=== PATIENT | female | born 1990 | race American Indian/Alaskan Native ===

== ENCOUNTER 2022-01-16 08:03 | Emergency (ER) | payer OTHER ==
[2022-01-16] MEDS ORDERED: SODIUM CHLORIDE 0.9% 1,000 ML IV STA (08:23)
[2022-01-16] MEDS ORDERED: KETOROLAC 15 MG/ML VIAL IVP STA (08:23)
[2022-01-16] MEDS ORDERED: ONDANSETRON 4 MG/2 ML VIAL IVP STA (08:23)
[2022-01-16] MEDS ORDERED: ACETAMINOPHEN 325 MG TABLET PO STA (09:09)
--- NOTE | 2022-01-16 09:16 | ED Physician Documentation ---
PD HPI HEADACHE - Stated complaint Stated Complaint: VOMIT/HEADACHE - Chief complaint Chief Complaint: Neuro - History obtained from History obtained from: Patient - History of Present Illness Timing - onset: Last night Timing - onset during: Sleep, Rest Timing - duration: Hours Timing - details: Gradual onset, Still present Worst headache ever?: No: Worst headache ever? (siilar to migraines when younger, but hadn't had one for several years.) Quality: Throbbing, Aching Associated symptoms: Nausea, Vision changes (mild blurred vision right). No: Fever, Stiff neck, Weakness, Numbness Worsened by: Light, Noise Contributing factors: No: Recent illness, Trauma Similar symptoms before: Diagnosis (migraines when younger) Recently seen: Not recently seen Review of Systems Constitutional: denies: Fever, Chills Nose: denies: Rhinorrhea / runny nose, Congestion Throat: denies: Sore throat Respiratory: denies: Cough Neurologic: denies: Focal weakness, Numbness PD PAST MEDICAL HISTORY - Past Medical History Cardiovascular: None Respiratory: None Neuro: Migraines Endocrine/Autoimmune: None - Present Medications Home Medications: Ambulatory Orders Medication Instructions Recorded Confirmed HYDROcod/ACETAM 5/325 [[place] 5/325] 1 ea PO Q6H PRN #12 tablet 01/16/22 Ondansetron Odt [Zofran] 4 mg TL Q6H PRN #12 tablet 01/16/22 Rizatriptan Benzoate [Rizatriptan] 5 mg PO Q6H PRN #6 tab 01/16/22 - Allergies Allergies/Adverse Reactions: Allergies Allergy/AdvReac Type Severity Reaction Status Date / Time No Known Drug Allergies Allergy Verified 01/16/22 08:31 PD ED PE NORMAL - Vitals Vital signs reviewed: Yes - General General: Alert and oriented X 3, No acute distress, Well developed/nourished - HEENT HEENT: PERRL, EOMI - Neck Neck: Supple, no meningeal sign, No adenopathy - Cardiac Cardiac: RRR, No murmur - Respiratory Respiratory: Clear bilaterally - Derm Derm: Normal color, Warm and dry - Extremities Extremities: Normal ROM s pain - Neuro Neuro: Alert and oriented X 3, 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 CLOUDY Urine pH 6.0 Ur Specific [place] >=1.030 H Urine Protein NEGATIVE Urine Glucose (UA) NEGATIVE Urine Ketones NEGATIVE Urine Occult Blood SMALL H Urine Nitrite NEGATIVE Urine Bilirubin NEGATIVE Urine Urobilinogen 0.2 (NORMAL) Ur Leukocyte Esterase TRACE H Urine RBC 0-5 Urine WBC >25 H Ur Squamous Epith Cells MANY Squamous H Urine Bacteria Few Urine Mucus Marked Strands Ur Microscopic Review INDICATED Urine Culture Comments NOT INDICATED PD MEDICAL DECISION MAKING - ED course Complexity details: re-evaluated patient (improved with migraine type meds. ), considered differential, d/w patient Departure - Departure Disposition: 01 Home, Self Care Clinical Impression: Headache, migraine Qualifiers: Migraine type: without aura Status migrainosus presence: with status migrainosus Intractability: not intractable Qualified Code(s): G43.001 - Migraine without aura, not intractable, with status migrainosus Condition: Stable Record reviewed to determine appropriate education?: Yes Instructions: ED Headache Migraine Follow-Up: [facility] [Provider Group] Prescriptions: HYDROcod/ACETAM 5/325 [[place] 5/325] 1 ea PO Q6H PRN #12 tablet PRN Reason: Pain Rizatriptan Benzoate [Rizatriptan] 5 mg PO Q6H PRN #6 tab PRN Reason: Migraine Ondansetron Odt [Zofran] 4 mg TL Q6H PRN #12 tablet PRN Reason: Nausea / Vomiting Comments: Small frequent fluids and rest today. Off work today. Tylenol every 4-6 hours if needed for headache/pains. Use hydrocodone/acetaminophen if needed for worse pain. Ondansetron every 6 hours if needed for nausea. Recheck or follow-up if not improved through the day today and better by tomorrow. Return if worse. For subsequent migraine type headaches, you could try combination of the ondansetron/Zofran for nausea along with a migraine and medicine called rizatriptan and could also have some ibuprofen with that. See if that combination would stop the headache earlier (within 1/2-hour to an hour). It be good to see if this would be useful for her subsequent headaches. If you have just a mild headache in the future then Tylenol or ibuprofen for just mild headache but the above combination for migraine type like this. I sent your prescriptions to [facility] pharmacy in [place]. I am prescribing a short course of narcotic pain medication for you. These are potentially dangerous and addictive medications that should be used carefully. These medications may constipate you. Take an lomj-pfk-ytwcoeh stool softener such as docusate twice daily with plenty of water while taking these medications. If you go 24 hours without a bowel movement, take vyyr-taa-jcdkzwm MiraLAX, per package instructions. Do not drink or drive while taking these medications. If you received narcotic or sedating medications while in the emergency department do not drive for 24 hours. Store this medication in a safe, secure place and out of reach of children. It is a violation of federal law to give or sell this medication to another person or to use in a manner other than prescribed. The ED will not refill narcotic prescriptions, including prescriptions lost or stolen. You can dispose of unwanted medications at the [facility]'s office or at several pharmacies such as [facility]. Forms: Activity restrictions Discharge Date/Time: 01/16/22 11:02
[2022-01-16 09:58] LABS: BILIRUBIN,URINE NEGATIVE (NEGATIVE); CLARITY,URINE SL. CLOUDY (CLEAR); GLUCOSE, URINE (UA) NEGATIVE (NEGATIVE); KETONES,URINE (UA) NEGATIVE (NEGATIVE); LEUKOCYTE ESTERASE, URINE TRACE (NEGATIVE); NITRITE,URINE NEGATIVE (NEGATIVE); OCCULT BLOOD,URINE SMALL (NEGATIVE); PROTEIN,URINE NEGATIVE (NEGATIVE); UROBILINOGEN,URINE 0.2 (NORMAL) E.U./dL (NORMAL)
[2022-01-16 10:08] LABS: BACTERIA,URINE Few /HPF (None Seen); MUCUS,URINE Marked Strands; RBC,URINE 0-5 /HPF (0-5); SQUAMOUS EPITHELIAL CELL,UR MANY Squamous (<= Few); WBC,URINE >25 /HPF (0-5)
[2022-01-16 11:02] VITALS: BP 99/65
== END 2022-01-16 11:02 | disposition home or self-care (01) ==
LOC: ED 08:03
DX: G43.001 Migraine without aura, not intractable, with status migrainosus (principal)
CPT/HCPCS: 81001; 96374; 96375; 99283; 99284; A9270; 81003; 87086

== ENCOUNTER 2022-04-04 19:54 | Emergency (ER) | payer OTHER ==
[2022-04-04 20:50] LABS: RAPID STREP SCREEN Negative (Negative)
--- NOTE | 2022-04-04 21:05 | ED Physician Documentation ---
History of Present Illness - Stated complaint Stated Complaint: FEVER,N/V/D,SORE THROAT - Chief complaint Chief Complaint: Heent - History obtained from History obtained from: Patient - Additonal information Additional information: 32-year-old female who presents with about 6 days of fever, sore throat, body aches, headache. She feels a sore throat is worsening and radiating into her ears. She has been taking some occasional ibuprofen or Tylenol but noted no improvement. She did see her PCP today who gave her a prescription for amoxicillin for sinusitis. She had COVID and flu testing done but did not receive the results yet.She has not had any chest pain, respiratory distress, abdominal pain, nausea vomiting or diarrhea. Review of Systems Ten Systems: 10 systems reviewed and negative (Except as per HPI) PD PAST MEDICAL HISTORY - Past Medical History Past Medical History: Yes Cardiovascular: None Respiratory: None Neuro: Migraines Endocrine/Autoimmune: None - Present Medications Home Medications: Ambulatory Orders Medication Instructions Recorded Confirmed Amoxicillin 500 mg PO TID 04/04/22 04/04/22 - Allergies Allergies/Adverse Reactions: Allergies Allergy/AdvReac Type Severity Reaction Status Date / Time No Known Drug Allergies Allergy Verified 04/04/22 20:10 PD ED PE NORMAL - Vitals Vital signs reviewed: Yes - General General: Alert and oriented X 3, No acute distress, Well developed/nourished - HEENT HEENT: Atraumatic, Ears normal, Moist mucous membranes, Pharynx benign, Dentition benign - Neck Neck: Supple, no meningeal sign, No JVD, Other (Posterior auricular adenopathy, minor) - Cardiac Cardiac: RRR, No murmur, No gallop, No rub - Respiratory Respiratory: No respiratory distress, Clear bilaterally - Abdomen Abdomen: Normal bowel sounds, Soft, Non tender, Non distended - Derm Derm: Normal color, Warm and dry, No rash - Neuro Neuro: Alert and oriented X 3 Eye Opening: Spontaneous Motor: Obeys Commands Verbal: Oriented GCS Score: 15 - Psych Psych: Normal mood, Normal affect Results - Vitals Vitals: Vital Signs - 24 hr 04/04/22 04/04/22 20:04 21:12 Temperature 38.2 C H 37.9 C Heart Rate 102 H 91 Respiratory 16 16 Rate Blood Pressure 125/70 122/68 O2 Saturation 98 99 Oxygen O2 Source Room air - Labs Labs: Laboratory Tests 04/04/22 20:30 Group A Strep Rapid Negative PD MEDICAL DECISION MAKING - ED course Complexity details: considered differential, d/w patient ED course: 32-year-old female presents with viral symptoms for the course of the last 6 days. She has sore throat, headache, body aches and fever. We obtained a strep test which was negative and clinically patient does not appear to have strep throat. Her respiratory viral panel is pending however suspect this might be the flu. She was already given amoxicillin by her primary care provider for a sinusitis and she can continue that but otherwise treatment is largely supportive, recommended plenty of rest, ibuprofen, Tylenol, or fluids. She was given the next 3 days off work. Return precautions reviewed. Departure - Departure Disposition: 01 Home, Self Care Clinical Impression: Viral syndrome Condition: Good Instructions: ED Viral Syndrome Comments: You presented with fever, body aches, sore throat, headache. Your symptoms are likely due to a virus, possibly influenza. Your strep test is negative. We should have your viral panel back tonight or tomorrow and you may call for results or check it out on the patient portal however treatment Is typically supportive including ibuprofen, Tylenol, lots of rest and oral fluids. Your primary Care doctor did give you antibiotics for possible sinusitis and I think it is reasonable to take these since you feel your symptoms are worsening over the course the last 6 days. Flu symptoms typically resolve in 1 to 2 weeks and anticipate you should start to see improvement over the next several days. Forms: Activity restrictions Discharge Date/Time: 04/04/22 21:12
[2022-04-04 21:13] VITALS: BP 122/68
[2022-04-04 22:09] LABS: B. PARAPERTUSSIS- RESP PCR PAN NOT DETECTED; B. PERTUSSIS- RESP PCR PANEL NOT DETECTED; C. PNEUMONIAE- RESP PCR PANEL NOT DETECTED; CORONAVIRUS 229E-RESP PCR NOT DETECTED; CORONAVIRUS HKU1-RESP PCR NOT DETECTED; CORONAVIRUS NL63-RESP PCR NOT DETECTED; CORONAVIRUS OC43-RESP PCR NOT DETECTED; HUMAN METAPNEUMOVIRUS NOT DETECTED; INFLUENZA A- RESP PCR PANEL NOT DETECTED; INFLUENZA B - RESP PCR PANEL NOT DETECTED; M. PNEUMONIAE- RESP PCR PANEL NOT DETECTED; PARAINFLUENZA VIRUS 1 NOT DETECTED; PARAINFLUENZA VIRUS 2 NOT DETECTED; PARAINFLUENZA VIRUS 3 NOT DETECTED; PARAINFLUENZA VIRUS 4 NOT DETECTED; RHINOVIRUS/ENTEROVIRUS NOT DETECTED; RSV- RESP PCR PANEL NOT DETECTED; SARS-CoV-2 -RESP PCR PANEL NOT DETECTED
== END 2022-04-04 21:12 | disposition home or self-care (01) ==
LOC: ED 19:54
DX: B34.9 Viral infection, unspecified (principal); Z20.822 Contact with and (suspected) exposure to COVID-19
CPT/HCPCS: 87070; 87430; 87633; 99282; 99283

== ENCOUNTER 2022-05-22 21:27 | Emergency (ER) | payer OTHER ==
[2022-05-22] MEDS ORDERED: SODIUM CHLORIDE 0.9% 1,000 ML IV STA (21:52)
[2022-05-22] MEDS ORDERED: ONDANSETRON 4 MG/2 ML VIAL IVP STA ×2 (21:52→23:23)
[2022-05-22 22:15] LABS: BASOPHILS % (AUTO) 0.1 %; EOSINOPHILS # (AUTO) 0.1 10^3/uL (0.0-0.7); EOSINOPHILS % (AUTO) 0.6 %; HCT - HEMATOCRIT 40.7 % (37.0-47.0); HGB - HEMOGLOBIN 13.2 g/dL (12.0-16.0); LYMPHOCYTES # (AUTO) 0.5 10^3/uL (1.5-3.5); MEAN CORPUSCULAR HGB CONC 32.4 g/dL (32.0-36.0); MEAN CORPUSCULAR VOLUME 89.5 fL (81.0-99.0); MEAN PLATELET VOLUME 9.3 fL (7.9-10.8); MONOCYTES # (AUTO) 0.3 10^3/uL (0.0-1.0); MONOCYTES % (AUTO) 3.3 %; NEUTROPHILS # (AUTO) 7.7 10^3/uL (1.5-6.6); NEUTROPHILS % (AUTO) 89.8 %; PLT - PLATELET COUNT 254 10^3/uL (130-450); RED BLOOD COUNT 4.55 10^6/uL (4.20-5.40); RED CELL DISTRIBUTION WIDTH 14.1 % (12.0-15.0); WHITE BLOOD COUNT 8.6 x10^3/uL (4.8-10.8)
[2022-05-22 22:17] LABS: BILIRUBIN,URINE NEGATIVE (NEGATIVE); GLUCOSE, URINE (UA) NEGATIVE (NEGATIVE); KETONES,URINE (UA) NEGATIVE (NEGATIVE); LEUKOCYTE ESTERASE, URINE TRACE (NEGATIVE); NITRITE,URINE NEGATIVE (NEGATIVE); OCCULT BLOOD,URINE MODERATE (NEGATIVE); PH,URINE 5.5 PH (5.0-7.5); PROTEIN,URINE NEGATIVE (NEGATIVE); UROBILINOGEN,URINE 0.2 (NORMAL) E.U./dL (NORMAL)
[2022-05-22 22:21] LABS: CLARITY,URINE HAZY (CLEAR); HCG UR QUAL NEGATIVE
[2022-05-22 22:26] LABS: BACTERIA,URINE Moderate /HPF (None Seen); SQUAMOUS EPITHELIAL CELL,UR MANY Squamous (<= Few)
[2022-05-22 22:29] LABS: ALBUMIN 4.6 g/dL (3.2-5.5); ALBUMIN/GLOBULIN RATIO 1.4 (1.0-2.2); BILIRUBIN,TOTAL 1.1 mg/dL (0.2-1.0); CALCIUM 8.7 mg/dL (8.5-10.3); CREATININE 0.6 mg/dL (0.4-1.0); POTASSIUM 3.7 mmol/L (3.5-5.0); TOTAL PROTEIN 7.9 g/dL (6.7-8.2)
--- NOTE | 2022-05-22 22:56 | ED Physician Documentation ---
PD HPI NVD - Stated complaint Stated Complaint: N/V/D, FEVER - Chief complaint Chief Complaint: Fever - History obtained from History obtained from: Patient - History of Present Illness Timing - onset: Enter time (05:00), Today Timing - details: Gradual onset Associated symptoms: Fever (subjective (did not take temperature but has had chills/diaphoresis)). No: Abdominal pain Contributing factors: Sick contact (patient's son T+R from this ED for similar symptoms 2 days ago) Recently seen: Not recently seen - Additonal information Additional information: HPI from patient, c/o nausea, vomiting, diarrhea since 5 AM this morning. Unable to tolerate PO including fluids since this evening. Denies abdominal pain. Review of Systems Cardiac: reports: Reviewed and negative Respiratory: reports: Reviewed and negative GI: reports: Nausea, Vomiting, Diarrhea. denies: Abdominal Pain, Hematemesis, Bloody / black stool : denies: Dysuria, Frequency, Now EGA PD PAST MEDICAL HISTORY - Past Medical History Past Medical History: Yes Cardiovascular: None Respiratory: None Neuro: Migraines Endocrine/Autoimmune: None - Present Medications Home Medications: Ambulatory Orders Medication Instructions Recorded Confirmed Ondansetron Odt [Zofran] 4 mg TL Q6H PRN #14 tablet 05/23/22 - Allergies Allergies/Adverse Reactions: Allergies Allergy/AdvReac Type Severity Reaction Status Date / Time No Known Drug Allergies Allergy Verified 05/22/22 21:43 - Social History Does the pt smoke?: No Smoking Status: Never smoker PD ED PE NORMAL - Vitals Vital signs reviewed: Yes - General General: Alert and oriented X 3, No acute distress, Well developed/nourished - HEENT HEENT: Other (tacky mucous membranes) - Neck Neck: Supple, no meningeal sign - Cardiac Cardiac: RRR, No murmur - Respiratory Respiratory: No respiratory distress, Clear bilaterally - Abdomen Abdomen: Normal bowel sounds, Soft, Non tender, Non distended Results - Vitals Vitals: Vital Signs - 24 hr 05/22/22 05/23/22 23:43 00:24 Temperature 37.0 C Heart Rate 88 Respiratory 16 15 Rate Blood Pressure 112/62 O2 Saturation 98 Oxygen O2 Source Room air - Labs Labs: Laboratory Tests 05/22/22 05/22/22 05/22/22 22:03 22:08 22:08 WBC 8.6 RBC 4.55 Hgb 13.2 Hct 40.7 MCV 89.5 MCH 29.0 MCHC 32.4 RDW 14.1 Plt Count 254 MPV 9.3 Neut # (Auto) 7.7 H Lymph # (Auto) 0.5 L [place] # (Auto) 0.3 Eos # (Auto) 0.1 Baso # (Auto) 0.0 Absolute Nucleated RBC 0.00 Nucleated RBC % 0.0 Sodium 134 L Potassium 3.7 Chloride 102 Carbon Dioxide 23 Anion Gap 9.0 BUN 12 Creatinine 0.6 Estimated GFR (MDRD) 117 Glucose 95 Calcium 8.7 Total Bilirubin 1.1 H AST 16 ALT 13 Alkaline Phosphatase 57 Total Protein 7.9 Albumin 4.6 Globulin 3.3 Albumin/Globulin Ratio 1.4 Lipase 35 Urine Color YELLOW Urine Clarity HAZY Urine pH 5.5 Ur Specific [place] >=1.030 H Urine Protein NEGATIVE Urine Glucose (UA) NEGATIVE Urine Ketones NEGATIVE Urine Occult Blood MODERATE H Urine Nitrite NEGATIVE Urine Bilirubin NEGATIVE Urine Urobilinogen 0.2 (NORMAL) Ur Leukocyte Esterase TRACE H Urine RBC 11-25 H Urine WBC 6-10 H Ur Squamous Epith Cells MANY Squamous H Urine Bacteria Moderate H Ur Microscopic Review INDICATED Urine Culture Comments NOT INDICATED Urine HCG, Qual NEGATIVE PD Medical Decision Making - ED course Complexity details: reviewed results, re-evaluated patient, considered different ial, d/w patient ED course: CBC, ER abdominal panel are without diagnostic nor concerning findings/abnormality (minimal hyponatermia, 134). Urine HCG negative. UA with RBC and WBC but many squamous cells; patient does not have UTI symptoms (frequency, burning/dysuria); likely contaminated specimen given squamous cells and without UTI symptoms , antibiotic is not indicated at this time. Given 1 liter NS IV with 4mg IV zofran and repeat dose 4mg IV zofran for residual nausea. On reevaluation she has moist mucous membranes, is in NAD, and reports improvement in symptoms. Results d/w patient. Given household contacts with similar symptoms (two children at home with similar symptoms), and unremarkable blood tests and no concerning findings on exam such as abdominal te nderness, viral etiology is most likely etiology. Results reviewed with patient, return precautions discussed. She is provided take-home pack of zofran and rx for same is transmitted to her pharmacy of choice. Departure - Departure Disposition: 01 Home, Self Care Clinical Impression: Vomiting Qualifiers: Vomiting type: unspecified Nausea presence: with nausea Qualified Code(s): R11.2 - Nausea with vomiting, unspecified Diarrhea Qualifiers: Diarrhea type: unspecified type Qualified Code(s): R19.7 - Diarrhea, unspecified Condition: Good Instructions: ED Diet Vomiting Diarrhea, ED Vomiting Diarrhea Nonspecific Ad Prescriptions: Ondansetron Odt [Zofran] 4 mg TL Q6H PRN #14 tablet PRN Reason: Nausea / Vomiting Comments: There were no concerning nor diagnostic findings on tonight's blood tests and urine test. Your description of symptoms combined with other household contacts having similar symptoms would be strongly suggestive of a viral cause of your symptoms. The symptoms should resolve without any specific treatment (such as an antibiotic) within the next few days. A prescription for the antinausea medication (ondansetron) has been provided to you. You can also take Imodium (ivwh-gxf-ekqphlo antidiarrhea medication) as needed per label instructions for diarrhea. Certainly, if your symptoms worsen or if you are unable to tolerate liquids orally even with the antinausea prescription medication, you can always return to the emergency department for reevaluation and intravenous hydration. Forms: Activity restrictions Discharge Date/Time: 05/23/22 00:43
[2022-05-23 00:04] VITALS: BP 112/62
[2022-05-23] MEDS ORDERED: ONDANSETRON ODT 4 MG Prepack 2 TL STA (00:16)
== END 2022-05-23 00:43 | disposition home or self-care (01) ==
LOC: ED 21:27
DX: R11.2 Nausea with vomiting, unspecified (principal); R19.7 Diarrhea, unspecified
CPT/HCPCS: 36415; 80053; 81001; 81003; 81025; 83690; 85025; 87086; 96374; 96376; 99283

== ENCOUNTER 2022-06-07 12:15 | Outpatient (CLI) | payer OTHER | END 2022-06-07 23:59 | disposition home or self-care (01) | LOC: LAB.N 12:15 | PROVIDERS: ATTEND Registered Nurse | DX: R30.0 Dysuria (principal); R82.71 Bacteriuria | CPT/HCPCS: 87086 ==

== ENCOUNTER 2022-06-07 13:26 | Outpatient (CLI) | payer OTHER ==
--- NOTE | 2022-06-07 19:10 | XRAY Report ---
PROCEDURE: Chest 2 View X-Ray INDICATIONS: ASPIRATION PNEUMONIA,LIQUIDS TECHNIQUE: 2 views of the chest were acquired. COMPARISON: None. FINDINGS: Lungs and pleura: No pleural effusions or pneumothorax. Lungs are clear. Mediastinum: Mediastinal contours are normal. Heart size is normal. Bones and chest wall: No suspicious bony abnormalities. Soft tissues appear unremarkable. IMPRESSION: No acute cardiopulmonary abnormality. Reviewed by: Rusty Ortez MD on 06/07/2022 7:08 PM [facility] Approved by: Rusty Ortez MD on 06/07/2022 7:08 PM [facility] Station ID: [id number]
== END 2022-06-07 13:27 | disposition home or self-care (01) ==
LOC: DI 13:26
PROVIDERS: ATTEND Registered Nurse
DX: J69.8 Pneumonitis due to inhalation of other solids and liquids (principal); R05.9 Cough, unspecified; R30.0 Dysuria; R82.71 Bacteriuria
CPT/HCPCS: 87086

== ENCOUNTER 2023-04-08 16:00 | Emergency (ER) | payer OTHER ==
[2023-04-08 16:23] VITALS: O2SAT 100
[2023-04-08] MEDS ORDERED: KETOROLAC 60 MG/2 ML VIAL IM STA (16:51)
[2023-04-08] MEDS ORDERED: PROMETHAZINE 25 MG/1 ML VIAL IM STA (16:51)
[2023-04-08] MEDS ORDERED: diphenhydrAMINE INJ 50 MG/ML VIAL IM STA (16:51)
--- NOTE | 2023-04-08 17:02 | ED Physician Documentation ---
PD HPI HEADACHE - Stated complaint Stated Complaint: [place]OTT/BLURRY VISION - Chief complaint Chief Complaint: Heent - History obtained from History obtained from: Patient - History of Present Illness Pain level max: 8 Pain level now: 8 Location: Front Quality: Throbbing, Aching Associated symptoms: Nausea. No: Fever, Stiff neck, Vomiting, Weakness, Numbness, Syncope, Seizure, Vision changes Improved by: No: Rest Contributing factors: No: Anticoagulated, Possible carbon monoxide, Hypertension, Recent illness, Trauma - Additional information Additional information: Patient is a 33-year-old female who presents to the emergency department with a headache for the past 2 days. Similar to prior migraines. Took Excedrin Migraine this morning without relief. Worse with light and sound, nothing makes it better. Gradual onset, frontal dull, aching no trauma. Denies any possibility of . Has an IUD. Review of Systems Constitutional: denies: Fever, Chills Nose: denies: Rhinorrhea / runny nose, Congestion GI: denies: Vomiting, Diarrhea : denies: Now EGA Skin: denies: Rash PD PAST MEDICAL HISTORY - Past Medical History Past Medical History: Yes Cardiovascular: None Respiratory: None Neuro: Migraines Endocrine/Autoimmune: None - Past Surgical History Past Surgical History: No - Present Medications Home Medications: Ambulatory Orders Medication Instructions Recorded Confirmed No Known Home Medications 04/08/23 04/08/23 - Allergies Allergies/Adverse Reactions: Allergies Allergy/AdvReac Type Severity Reaction Status Date / Time No Known Drug Allergies Allergy Verified 04/08/23 16:13 - Social History Does the pt smoke?: No Smoking Status: Never smoker Does the pt drink ETOH?: No Does the pt have substance abuse?: No PD ED PE NORMAL - Vitals Vital signs reviewed: Yes - General General: Alert and oriented X 3, Well developed/nourished, Other (Lying in a dark room, eyes closed) - HEENT HEENT: Atraumatic, PERRL, Moist mucous membranes, Pharynx benign - Neck Neck: Supple, no meningeal sign, No bony TTP - Cardiac Cardiac: RRR, Strong equal pulses - Respiratory Respiratory: No respiratory distress, Clear bilaterally - Abdomen Abdomen: Soft, Non tender, Non distended - Back Back: No spinal TTP - Derm Derm: Warm and dry, No rash - Extremities Extremities: No edema, No calf tenderness / cord - Neuro Neuro: Alert and oriented X 3, property valuer 2-12 intact, No motor deficit, No sensory deficit, Normal speech Eye Opening: Spontaneous Motor: Obeys Commands Verbal: Oriented GCS Score: 15 - Psych Psych: Normal mood, Normal affect Results - Vitals Vitals: Vital Signs - 24 hr 04/08/23 04/08/23 16:06 17:43 Temperature 36.5 C Heart Rate 69 77 Respiratory 16 16 Rate Blood Pressure 123/70 100/57 L O2 Saturation 100 100 Oxygen O2 Source Room air PD Medical Decision Making - ED course Complexity details: re-evaluated patient, considered differential, d/w patient ED course: 33-year-old female with a history of migraine headaches, has a headache today that feels similar to prior. She was given a dose of Toradol, Phenergan, Benadryl. Headache fully resolved. Patient is awake, alert, speaking clearly. Eyes open in a brightly lit room without any pain or discomfort. No evidence of subarachnoid hemorrhage, tumor, mass. Patient will follow-up with her PCP for further care. No indication for further workup at this time. Patient counseled regarding signs and symptoms for which I believe and urgent re-evaluation would be necessary. Patient with good understanding of and agreement to plan and is comfortable going home at this time This document was made in part using voice recognition software. While efforts are made to proofread this document, sound alike and grammatical errors may occur. Departure - Departure Disposition: 01 Home, Self Care Clinical Impression: Migraine Qualifiers: Migraine type: unspecified Status migrainosus presence: without status migrainosus Intractability: not intractable Qualified Code(s): G43.909 - Migraine, unspecified, not intractable, without status migrainosus Condition: Good Instructions: ED Headache Migraine Follow-Up: your,doctor as needed [Other] Comments: You had a migraine headache tonight. You were given IM Toradol, Phenergan and Benadryl. This has resolved your symptoms. Please follow-up with your doctor for further care. You can discuss migraine therapies with your primary care provider such as Imitrex. Please return if you worsen. Forms: PCP List Discharge Date/Time: 04/08/23 18:28
[2023-04-08 17:52] VITALS: BP 100/57
== END 2023-04-08 18:28 | disposition home or self-care (01) ==
LOC: ED 16:00
DX: G43.909 Migraine, unspecified, not intractable, without status migrainosus (principal)
CPT/HCPCS: 96372; 99283; J1200

== ENCOUNTER 2023-05-08 19:55 | Emergency (ER) | payer OTHER ==
[2023-05-08] MEDS ORDERED: SODIUM CHLORIDE 0.9% 1,000 ML IV STA (20:07)
[2023-05-08] MEDS ORDERED: ONDANSETRON 4 MG/2 ML VIAL IVP STA ×2 (20:07→21:52)
[2023-05-08] MEDS ORDERED: DROPERIDOL 5 MG/2 ML VIAL IVP STA (20:08)
[2023-05-08] MEDS ORDERED: KETOROLAC 30 MG/ML VIAL IVP STA (20:08)
[2023-05-08 20:18] LABS: BASOPHILS % (AUTO) 0.4 %; EOSINOPHILS % (AUTO) 0.4 %; HCT - HEMATOCRIT 38.8 % (37.0-47.0); HGB - HEMOGLOBIN 12.4 g/dL (12.0-16.0); LYMPHOCYTES # (AUTO) 1.6 10^3/uL (1.5-3.5); MEAN CORPUSCULAR HEMOGLOBIN 27.7 pg (27.0-31.0); MEAN CORPUSCULAR VOLUME 86.8 fL (81.0-99.0); MEAN PLATELET VOLUME 9.3 fL (7.9-10.8); MONOCYTES # (AUTO) 0.4 10^3/uL (0.0-1.0); MONOCYTES % (AUTO) 5.1 %; NEUTROPHILS # (AUTO) 5.2 10^3/uL (1.5-6.6); NEUTROPHILS % (AUTO) 71.8 %; PLT - PLATELET COUNT 252 10^3/uL (130-450); RED BLOOD COUNT 4.47 10^6/uL (4.20-5.40); RED CELL DISTRIBUTION WIDTH 14.2 % (12.0-15.0); WHITE BLOOD COUNT 7.3 x10^3/uL (4.8-10.8)
--- NOTE | 2023-05-08 20:25 | ED Physician Documentation ---
History of Present Illness - Stated complaint Stated Complaint: N/V,ELLIOTT,CONGESTION - Chief complaint Chief Complaint: Neuro - History obtained from History obtained from: Patient - Additonal information Additional information: The patient comes to the emergency department chief complaint of headache, nasal congestion, nausea, and vomiting that started over the last couple of days. She states that last week, she had a viral type illness and that she felt as though she was getting better, but then began to feel bad again couple of days ago. The patient denies any new exposures that she knows of. She states that she is otherwise fairly healthy. She no longer has a gallbladder but otherwise, has not had any Surgeries on her abdomen. She denies abdominal pain other than some discomfort over her left upper quadrant area. She still nauseated. She states her headache is on the left side. No visual changes or other neurologic symptoms. No fevers or chills. No other complaints at this time. PD PAST MEDICAL HISTORY - Past Medical History Past Medical History: Yes Cardiovascular: None Respiratory: None Neuro: Migraines Endocrine/Autoimmune: None - Past Surgical History Past Surgical History: No - Present Medications Home Medications: Ambulatory Orders Medication Instructions Recorded Confirmed Ondansetron Odt [Zofran] 4 mg TL Q6H PRN #10 tablet 05/08/23 - Allergies Allergies/Adverse Reactions: Allergies Allergy/AdvReac Type Severity Reaction Status Date / Time latex Allergy Rash Verified 05/08/23 20:02 - Social History Does the pt smoke?: No Smoking Status: Never smoker Does the pt drink ETOH?: No Does the pt have substance abuse?: No - Immunizations Immunizations are current?: Yes PD ED PE NORMAL - Vitals Vital signs reviewed: Yes - General General: Alert and oriented X 3, No acute distress, Well developed/nourished, Other (Appears mildly uncomfortable otherwise in no apparent distress.) - HEENT HEENT: Atraumatic, PERRL, EOMI, Moist mucous membranes - Neck Neck: Supple, no meningeal sign - Cardiac Cardiac: RRR, No murmur - Respiratory Respiratory: No respiratory distress, Clear bilaterally - Abdomen Abdomen: Soft, Non distended, Other (Mild left upper quadrant tenderness, no rebound or guarding.) - Derm Derm: Normal color, Warm and dry, No rash - Extremities Extremities: No deformity, No edema - Neuro Neuro: Alert and oriented X 3, drivability technician 2-12 intact, No motor deficit, No sensory deficit, Normal speech - Psych Psych: Normal mood, Normal affect Results - Vitals Vitals: Oxygen O2 Source Room air - Labs Labs: Laboratory Tests 05/08/23 05/08/23 05/08/23 20:10 20:10 21:06 WBC 7.3 RBC 4.47 Hgb 12.4 Hct 38.8 MCV 86.8 MCH 27.7 MCHC 32.0 RDW 14.2 Plt Count 252 MPV 9.3 Neut # (Auto) 5.2 Lymph # (Auto) 1.6 [place] # (Auto) 0.4 Eos # (Auto) 0.0 Baso # (Auto) 0.0 Absolute Nucleated RBC 0.00 Nucleated RBC % 0.0 Sodium 136 Potassium 3.9 Chloride 105 Carbon Dioxide 25 Anion Gap 6.0 BUN 11 Creatinine 0.6 Estimated GFR (MDRD) 117 Glucose 91 Calcium 9.3 Total Bilirubin 0.6 AST 13 ALT 11 Alkaline Phosphatase 41 L Total Protein 7.3 Albumin 4.5 Globulin 2.8 Albumin/Globulin Ratio 1.6 Lipase 23 Nasal Adenovirus (PCR) NOT DETECTED Nasal B. parapertussis DNA (PCR) NOT DETECTED Nasal Coronavir 229E PCR NOT DETECTED Nasal Coronavir HKU1 PCR NOT DETECTED Nasal Coronavir NL63 PCR NOT DETECTED Nasal Coronavir OC43 PCR NOT DETECTED Nasal Enterovir/Rhinovir PCR DETECTED A Nasal Influenza B PCR NOT DETECTED Nasal Influenza A PCR NOT DETECTED Nasal Parainfluen 1 PCR NOT DETECTED Nasal Parainfluen 2 PCR NOT DETECTED Nasal Parainfluen 3 PCR NOT DETECTED Nasal Parainfluen 4 PCR NOT DETECTED Nasal RSV (PCR) NOT DETECTED Nasal B.pertussis DNA PCR NOT DETECTED Nasal C.pneumoniae (PCR) NOT DETECTED Mau Human Metapneumo PCR NOT DETECTED Nasal M.pneumoniae (PCR) NOT DETECTED Nasal SARS-CoV-2 (PCR) NOT DETECTED PD Medical Decision Making - ED course Complexity details: reviewed results, re-evaluated patient, considered different ial, d/w patient ED course: Patient was treated symptomatically for her headache. Respiratory PCR was positive for rhinovirus. The patient's blood work was unremarkable. I discussed the findings with the patient, as well as the timeline for symptoms and the expected self-limited course of her illness. We discussed the usual indications for return. Departure - Departure Disposition: 01 Home, Self Care Clinical Impression: Rhinovirus infection Migraine Qualifiers: Migraine type: unspecified Status migrainosus presence: without status migrainosus Intractability: not intractable Qualified Code(s): G43.909 - Migraine, unspecified, not intractable, without status migrainosus Condition: Stable Instructions: ED Viral Syndrome Prescriptions: Ondansetron Odt [Zofran] 4 mg TL Q6H PRN #10 tablet PRN Reason: Nausea / Vomiting Comments: You have been treated for your migraine here in the emergency department, as well as your nausea. Your viral panel was positive for rhinovirus, one of the common viral illnesses that can cause upper respiratory symptoms but also, sometimes some nausea. We have been seeing a lot of this going around lately and you most likely got it just from the general community. As with all viruses, it is expected to go away on its own, given time. Please follow-up with your primary doctor as needed. Your symptoms should be expected to improve in the next 1 to 2 weeks if not sooner. You may use ibuprofen and Tylenol at home as needed, as well as the nausea medicine that has been prescribed for you. Your prescription has been electronically transmitted to the [facility] pharmacy in [place]. Please pick it up in the morning. Forms: PCP List Discharge Date/Time: 05/09/23 00:45
[2023-05-08 20:35] LABS: ALBUMIN 4.5 g/dL (3.2-5.5); ALBUMIN/GLOBULIN RATIO 1.6 (1.0-2.2); BILIRUBIN,TOTAL 0.6 mg/dL (0.2-1.0); CALCIUM 9.3 mg/dL (8.5-10.3); CREATININE 0.6 mg/dL (0.6-1.3); POTASSIUM 3.9 mmol/L (3.5-4.5); TOTAL PROTEIN 7.3 g/dL (6.4-8.9)
[2023-05-08 23:00] LABS: B. PARAPERTUSSIS- RESP PCR PAN NOT DETECTED; B. PERTUSSIS- RESP PCR PANEL NOT DETECTED; C. PNEUMONIAE- RESP PCR PANEL NOT DETECTED; CORONAVIRUS 229E-RESP PCR NOT DETECTED; CORONAVIRUS HKU1-RESP PCR NOT DETECTED; CORONAVIRUS NL63-RESP PCR NOT DETECTED; CORONAVIRUS OC43-RESP PCR NOT DETECTED; HUMAN METAPNEUMOVIRUS NOT DETECTED; INFLUENZA A- RESP PCR PANEL NOT DETECTED; INFLUENZA B - RESP PCR PANEL NOT DETECTED; M. PNEUMONIAE- RESP PCR PANEL NOT DETECTED; PARAINFLUENZA VIRUS 1 NOT DETECTED; PARAINFLUENZA VIRUS 2 NOT DETECTED; PARAINFLUENZA VIRUS 3 NOT DETECTED; PARAINFLUENZA VIRUS 4 NOT DETECTED; RHINOVIRUS/ENTEROVIRUS DETECTED; RSV- RESP PCR PANEL NOT DETECTED; SARS-CoV-2 -RESP PCR PANEL NOT DETECTED
[2023-05-09 01:05] VITALS: BP 127/90; O2SAT 97
== END 2023-05-09 00:45 | disposition home or self-care (01) ==
LOC: ED 19:55
DX: B34.8 Other viral infections of unspecified site (principal); G43.909 Migraine, unspecified, not intractable, without status migrainosus
CPT/HCPCS: 36415; 80053; 83690; 85025; 87633; 96374; 96375; 99283

== ENCOUNTER 2023-09-20 09:34 | Outpatient (CLI) | payer OTHER ==
--- NOTE | 2023-09-20 18:32 | XRAY Report ---
PROCEDURE: Knee 3V RT INDICATIONS: CONTUSION OF RIGHT KNEE TECHNIQUE: 3 views of the knee(s) were acquired. COMPARISON: None. FINDINGS: Bones: No fractures or dislocations. No suspicious bony lesions. Soft tissues: Small knee joint effusion. No suspicious soft tissue calcifications or masses. IMPRESSION: No acute bony abnormality. Small joint effusion. Reviewed by: Seymour Matias MD on 09/20/2023 6:31 PM PDT Approved by: Seymour Matias MD on 09/20/2023 6:31 PM PDT Station ID: [id number]
== END 2023-09-20 09:35 | disposition home or self-care (01) ==
LOC: DI.N 09:34
PROVIDERS: ATTEND Physician Assistant Medical
DX: S80.01XA Contusion of right knee, initial encounter (principal); M25.461 Effusion, right knee